=== PATIENT | female | born 1960 | race African-American/Black ===

== ENCOUNTER 2018-08-18 11:06 | Emergency (ER) | payer MEDICAID, OTHER ==
[~2018-08-18] VITALS: Ht 167.6 cm; Wt 81.6 kg
[2018-08-18 12:27] VITALS: BP 152/61
== END 2018-08-18 13:33 | disposition home or self-care (01) ==
LOC: ER 11:11
DX: M25.561 Pain in right knee (principal); Z88.0 Allergy status to penicillin
CPT/HCPCS: 93971

== ENCOUNTER 2023-04-21 10:19 | Emergency (ER) | payer MEDICAID ==
[~2023-04-21] VITALS: Ht 167.6 cm; Wt 78.6 kg
[2023-04-21 15:27] VITALS: BP 131/87; PULSE 72; RESP 16; TEMP 98.1; O2SAT 99
== END 2023-04-21 15:29 | disposition home or self-care (01) ==
LOC: ER 10:19
DX: H43.391 Other vitreous opacities, right eye (principal); I10 Essential (primary) hypertension; E78.5 Hyperlipidemia, unspecified; Z88.0 Allergy status to penicillin
CPT/HCPCS: 70450; 70551